=== PATIENT | male | born 1940 | race Caucasian/White ===

== ENCOUNTER 2021-05-22 23:38 | Inpatient (IN) | payer MEDICARE, BC ==
[~2021-05-22] VITALS: Ht 167.6 cm; Wt 74.8 kg
--- NOTE | 2021-05-22 23:40 | NUR ---
PT WAS BIBRA FROM HOME FOR C/O SOB X 2 HRS. PER EMS PT IS NORMALLY ON O2 AT 2LPM VIA NS ON BASE LINE AND WAS HOLDING O2 SAT OF 82% ON SCENE. PT ARRIVED ON O2 AT 15LPM VIA NRB MASK. REC'D ALBUTEROL AND 3 SPRAYS ON NITRO AUTOMATIC VULCANIZING OPERATOR. PT WAS PLACED IN BED 6ER, ON MONITOR, ON O2 AT 15LPM VIA NRB MASK. SATTING AT 96%. MADE AWARE. WILL CONT TO MONITOR ,
--- NOTE | 2021-05-22 23:56 | NUR ---
blood sent to lab
--- NOTE | 2021-05-23 00:01 | NUR ---
DR GARCIA AT BED SIDE
[2021-05-23 00:10] LABS: BASOPHILS # (AUTO) 0.1 K/uL (0.0-0.2); BASOPHILS % (AUTO) 0.7 % (0.0-2.0); EOSINOPHILS % (AUTO) 4.5 % (0.0-6.0); HEMATOCRIT 48 % (39-51); HEMOGLOBIN 16.1 g/dL (13.5-17.5); LYMPHOCYTES # (AUTO) 1.9 K/uL (0.8-4.8); LYMPHOCYTES % (AUTO) 16.3 % (20.0-44.0); MEAN CORPUSCULAR HGB CONC 34 g/dl (31.0-36.0); MEAN CORPUSCULAR VOLUME 98 fL (80-96); MONOCYTES % (AUTO) 8.4 % (2.0-12.0); NEUTROPHILS # (AUTO) 7.9 K/uL (1.8-8.9); NEUTROPHILS % (AUTO) 70.1 % (43.0-81.0); PLATELET COUNT (AUTO) 181 K/uL (150-450); RED BLOOD CELL COUNT(AUTO) 4.93 MIL/uL (4.5-6.0); WHITE BLOOD COUNT (AUTO) 11.4 K/uL (4.3-11.0)
[2021-05-23] MEDS ORDERED: FUROSEMIDE 40 MG/4 ML VIAL ONE (00:16)
[2021-05-23] MEDS ORDERED: NITROGLYCERIN 0.4 MG/TAB BOTTLE ONE (00:16)
[2021-05-23 00:22] LABS: CALCIUM, SERUM 8.6 mg/dL (8.5-10.1); CREATININE 0.8 mg/dL (0.6-1.3); POTASSIUM 4.8 mmol/L (3.5-5.1)
--- NOTE | 2021-05-23 00:23 | NUR ---
RT AT BED SIDE TO PLACE PT ON BIPAP
[2021-05-23] MEDS ORDERED: ALBUTEROL FS 2.5 MG/3 ML VIAL.NEB ONE (00:29)
[2021-05-23] MEDS ORDERED: FUROSEMIDE 40 MG/4 ML VIAL IV ONE ×2 (00:30→21:00)
[2021-05-23] MEDS ORDERED: NITROGLYCERIN 0.4 MG/TAB BOTTLE SL ONE (00:30)
[2021-05-23] MEDS ORDERED: ALBUTEROL FS 2.5 MG/3 ML VIAL.NEB NEB ONE (00:30)
--- NOTE | 2021-05-23 00:51 | NUR ---
BRETHING TX COMPLETED. PT IS PLACED ON O2 AT 10LPM VIA NRB MASK. WILL CONT TO MONITOR
--- NOTE | 2021-05-23 01:01 | NUR ---
PT WAS PROVIDED [facility]/ A PAPER AND PEN FOR HOME'S LIST
[2021-05-23] MEDS ORDERED: FURO-144 PO (01:28)
[2021-05-23] MEDS ORDERED: ASPI-1169 PO (01:28)
[2021-05-23] MEDS ORDERED: CHOL200074 PO (01:28)
[2021-05-23] MEDS ORDERED: MULT-1201 PO (01:28)
[2021-05-23] MEDS ORDERED: POTA20TA83 PO ×3 (01:28→12:43)
[2021-05-23] MEDS ORDERED: FLUT1BLS IH (01:28)
[2021-05-23] MEDS ORDERED: DOCU100C36 PO (01:28)
[2021-05-23 01:38] LABS: ALBUMIN 3.6 g/dL (3.4-5.0); BILIRUBIN,DIRECT 0.1 mg/dL (0.0-0.2); BILIRUBIN,TOTAL 0.5 mg/dL (0.2-1.0); TOTAL PROTEIN, SERUM 7.5 g/dL (6.4-8.2)
--- NOTE | 2021-05-23 02:06 | NUR ---
SITTING IN BED AWAKE AND RESPONSIVE, REMAINEDON O2 AT 10 LPM VIA NRB MASK .REPORTED FEELING OK. NO SOB. WILL CONT TO MONITOR ,
--- NOTE | 2021-05-23 02:51 | NUR ---
report given to nurse baltazar.
[2021-05-23] MEDS ORDERED: Z GUARD REMEDY 2 OZ OINT TP PRN (03:00)
[2021-05-23] MEDS ORDERED: BUMETANIDE INJ 6 MG in IV NS 0.9% 36 ML IV ONE (03:00)
[2021-05-23] MEDS ORDERED: ONDANSETRON HCL/PF 4 MG/2 ML VIAL IVP PRN (03:00)
[2021-05-23] MEDS ORDERED: ACETAMINOPHEN 325 MG TABLET PO PRN (03:00)
[2021-05-23 03:20] VITALS: BP 112/55
--- NOTE | 2021-05-23 03:20 | NUR ---
CLINICAL PROJECT ASSISTANT NOTES, RECEIVED 80 YEAR OLD FROM ER DEPARTMENT VIA STRETCHER ACCOMPANIED BY 2 NURSES, PATIENT A/O X 4 ABLE TO VERBALIZED NEEDS AND CONCERNS, ON NON REBREATHER MASK AT 10ML AT THIS TIME WITH O2 96%, 112/55, 72, 97.3, 20, ADMITTING [facility], WITH ADMITTING DX ACUTE HYPOXIC RESPIRATORY FAILURE, IV ACCESS IN RIGHT HAND 18G PATENT SONIA INTACT, ATTACHED TO TELE MONITOR WITH NSR AND HR IN 70S AT THIS TIME, SKIN INTACT, AFEBRILE, ALL SAFETY PRECAUTIONS PLACED, CALL LIGHT W/I REACH, WILL CONTINUE TO MONITOR CLOSELY.
--- NOTE | 2021-05-23 03:24 | NUR ---
urinated to 1000ml of clear yellow urine.
--- NOTE | 2021-05-23 03:28 | NUR ---
pt was transferred to rm [id number] under ACLS
--- NOTE | 2021-05-23 03:34 | NUR ---
home: [phone] [place]: [phone] cell fay, cell: [phone]
[2021-05-23] MEDS: ENOXAPARIN SODIUM 40 MG/0.4 ML DISP.SYRIN SQ SCH ×2 (03:44→21:20)
--- NOTE | 2021-05-23 04:15 | NUR ---
RN NOTES, PATIENT C/O OF INABILITY TO SLEEP AND STATED HE ALWAYS TAKES XANAX PO 0.5MG TO HELP TO SLEEP, PATIENT REQUESTING XANAX OR AMBIEN, PAGED SHARON Blackwood PARTS SALESMAN, PER TOUR LEADER SHE WILL PAGE SHARON Blackwood, AWAITING FOR CALL BACK.
[2021-05-23] MEDS ORDERED: BUMETANIDE INJ 0.25 MG/ML VIAL ONE ×2 (04:20→04:22)
--- NOTE | 2021-05-23 05:15 | NUR ---
RN NOTES, PATIENT UPSET ASKING FOR SOMETHING TO SLEEP, PAGED SHARON AGAIN, AWAITING FOR CALL BACK, PATIENT REFUSED BUMEX AND DEMAND TO STOP THE INFUSION, STATED THAT HE ALREADY TOOK LASIX AND ER DEPARTMENT, HE REFUSED BUMEX, EXPLAIN RISKS AND BENEFITS, STILL REFUSED, WILL INFORM SHARON.
--- NOTE | 2021-05-23 07:10 | NUR ---
RN NOTE RECEIVED PATIENT IN BED. A/O X4. ON SIMPLE MASK AT 2LPM. NO SOB NOTED. IN NO APPARENT DISTRESS. DENIES ANY PAIN OR DISCOMFORT AT THIS TIME. IV ACCESS ON R HAND #18G, INTACT AND PATENT. SAFETY MEASURES MAINTAINED. BED IN LOWEST POSITION, BRAKES LOCKED. SIDE RAILS UP X2. CALL LIGHT WITHIN REACH. WILL CONTINUE PLAN OF CARE.,
--- NOTE | 2021-05-23 07:31 | NUR ---
RN NOTES, NO RESPONSE FROM SHARON TILL NOW, ENDORSE TO TIAN/KARLI GARVEY FOR CONTINUATION OF CARE AND REPORT TO THAT PATIENT REFUSED BUMEX MEDICATION.
[2021-05-23] MEDS: PANTOPRAZOLE 40 MG TABLET.DR PO SCH (08:10)
[2021-05-23] MEDS: DOCUSATE SODIUM 100 MG CAPSULE PO SCH (08:10)
[2021-05-23] MEDS: FLUTICASONE/VILANTEROL 1 EACH BLST.W.DEV IH SCH (08:10)
[2021-05-23] MEDS: ASPIRIN 81 MG TAB.CHEW PO SCH (08:10)
[2021-05-23] MEDS ORDERED: POTASSIUM CHLORIDE 20 MEQ TAB.PRT.SR PO SCH ×2 (09:00→18:00)
[2021-05-23] MEDS ORDERED: FUROSEMIDE 40 MG TABLET PO SCH (09:00)
[2021-05-23] MEDS ORDERED: ALPR0.5T PO (13:43)
[2021-05-23 16:26] LABS: BILIRUBIN,URINE NEGATIVE (NEGATIVE); COLOR,URINE YELLOW (YELLOW); LEUKOCYTE ESTERASE ,URINE NEGATIVE (NEGATIVE); NITRITE, URINE NEGATIVE (NEGATIVE); PROTEIN,URINE NEGATIVE (NEGATIVE); UGLUCOSE NEGATIVE (NEGATIVE); UROBILINOGEN,URINE 0.2 EU/dL (0.2)
--- NOTE | 2021-05-23 18:50 | NUR ---
RN CLOSING NOTE PATIENT IN BED. A/O X4. ON 2LPM VIA NASAL CANNULA. NO SOB NOTED. NO S/S OF RESPIRATORY DISTRESS. DENIES ANY PAIN OR DISCOMFORT AT THIS TIME. IV ACCESS ON R HAND #18 G, INTACT AND PATENT. ALL DUE MEDS GIVEN ORDERED. ALL NEEDS HAVE BEEN MET AND ATTENDED. SAFETY MEASURES MAINTAINED. BED IN LOWEST POSITION, BRAKES LOCKED. SIDE RAILS UP X2. CALL LIGHT WITHIN REACH. WILL ENDORSE CONTINUITY OF CARE TO ONCOMING SHIFT.
[2021-05-23 20:00] VITALS: BP 97/65
--- NOTE | 2021-05-23 20:39 | NUR ---
DR. CHÁVEZ IN TO SEE PATIENT FOR CARDIOLOGY CONSULT. NEW ORDER TO GIVE IV LASIX X1 40MG NOW. ORDER PLACED.
[2021-05-23] MEDS ORDERED: ATORVASTATIN 40 MG TABLET PO SCH (22:00)
[2021-05-23] MEDS ORDERED: ALPRAZOLAM 0.5 MG TABLET PO PRN (22:00)
[2021-05-24] VITALS: BP 98/60
[2021-05-24 04:00] VITALS: BP 117/60
[2021-05-24 07:07] LABS: BASOPHILS # (AUTO) 0.1 K/uL (0.0-0.2); BASOPHILS % (AUTO) 1.2 % (0.0-2.0); EOSINOPHILS % (AUTO) 7.9 % (0.0-6.0); HEMATOCRIT 43 % (39-51); HEMOGLOBIN 14.4 g/dL (13.5-17.5); LYMPHOCYTES # (AUTO) 1.1 K/uL (0.8-4.8); LYMPHOCYTES % (AUTO) 17.1 % (20.0-44.0); MEAN CORPUSCULAR HGB CONC 34 g/dl (31.0-36.0); MEAN CORPUSCULAR VOLUME 97 fL (80-96); MONOCYTES # (AUTO) 0.8 K/uL (0.1-1.30); NEUTROPHILS % (AUTO) 61.8 % (43.0-81.0); PLATELET COUNT (AUTO) 138 K/uL (150-450); RED BLOOD CELL COUNT(AUTO) 4.38 MIL/uL (4.5-6.0); WHITE BLOOD COUNT (AUTO) 6.5 K/uL (4.3-11.0)
[2021-05-24 07:37] LABS: CALCIUM, SERUM 8.3 mg/dL (8.5-10.1); CREATININE 0.8 mg/dL (0.6-1.3); MAGNESIUM 1.9 mg/dL (1.8-2.4); PHOSPHORUS 4.4 mg/dL (2.5-4.9); POTASSIUM 4.4 mmol/L (3.5-5.1)
[2021-05-24] MEDS: PANTOPRAZOLE 40 MG TABLET.DR PO SCH (07:45)
--- NOTE | 2021-05-24 07:50 | NUR ---
RN OPENING NOTES RECEIVED PATIENT ON BED AWAKE ALERT AND ORIENTED X4. PATIENT IS ON 2 L OXYGEN VIA NASAL CANNULA SATURATING WELL. PATIENT IN NO APPARENT RESPIRATORY DISTRESS NOTED. NO COMPLAINED OF PAIN NOTED AT THIS TIME. WILL CONTINUE TO MONITOR.
[2021-05-24 07:56] LABS: THYROID STIMULATING HORMONE 1.868 uIU/mL (0.358-3.74)
[2021-05-24 08:00] VITALS: BP 98/53
[2021-05-24] MEDS ORDERED: METOPROLOL SUCCINATE 25 MG TAB.SR.24H PO SCH (08:30)
[2021-05-24] MEDS ORDERED: POTASSIUM CHLORIDE 20 MEQ TAB.PRT.SR PO SCH (09:00)
[2021-05-24] MEDS: FUROSEMIDE 40 MG TABLET PO SCH ×2 (09:18→09:26)
[2021-05-24] MEDS: DOCUSATE SODIUM 100 MG CAPSULE PO SCH (09:18)
[2021-05-24] MEDS: ASPIRIN 81 MG TAB.CHEW PO SCH (09:18)
[2021-05-24] MEDS: FLUTICASONE/VILANTEROL 1 EACH BLST.W.DEV IH SCH (09:20)
[2021-05-24 12:00] VITALS: BP 111/64
[2021-05-24] MEDS ORDERED: METO25TA6 PO (12:47)
[2021-05-24] MEDS ORDERED: FURO40TA5 PO (12:47)
--- NOTE | 2021-05-24 14:37 | NUR ---
RN NOTES PATIENT WAS UPSET THAT HE DIDNT GET PT EVAL CHARGE NURSE SOON WAS AWARE, ORDER PT EVAL.
--- NOTE | 2021-05-24 18:36 | NUR ---
RN NOTES PATIENT IS ALERT AND ORIENTED X4. PATIENT IS ON ROOM AIR SATURATION 93%. PATIENT IN NO APPARENT RESPIRATORY DISTRESS NOTED. NO COMPLAINED OF PAIN AT THIS TIME. SEEN AND EXAMINED BY MD WITH ORDERS MADE AND CARRIED OUT. ALL DUE MEDICATIONS WAS GIVEN. DISCHARGED INSTRUCTIONS WAS GIVEN AND PATIENT VERBALIZED UNDERSTANDING. PATIENT LEFT THE HOSPITAL IN MEDICALLY STABLE CONDITION.GARBAGE COLLECTOR BY AND SON VIA PRIVATE CAR.
== END 2021-05-24 15:26 | disposition home or self-care (01) | DRG 280 ==
LOC: ER 23:39 → TELE1 05-23 02:11
PROVIDERS: ADMIT Registered Nurse; ATTEND Registered Nurse
DX: I50.23 Acute on chronic systolic (congestive) heart failure (principal); I21.A1 Myocardial infarction type 2; J96.21 Acute and chronic respiratory failure with hypoxia; J45.909 Unspecified asthma, uncomplicated; I25.10 Atherosclerotic heart disease of native coronary artery without angina pectoris; Z87.891 Personal history of nicotine dependence; Z79.82 Long term (current) use of aspirin; Z20.822 Contact with and (suspected) exposure to COVID-19; D72.829 Elevated white blood cell count, unspecified; G47.33 Obstructive sleep apnea (adult) (pediatric); Z95.0 Presence of cardiac pacemaker; Z95.2 Presence of prosthetic heart valve; Z79.899 Other long term (current) drug therapy; I35.0 Nonrheumatic aortic (valve) stenosis; F10.20 Alcohol dependence, uncomplicated; Y90.9 Presence of alcohol in blood, level not specified; Z79.51 Long term (current) use of inhaled steroids
CPT/HCPCS: 36415; 71045-TC; 80048-TC; 80061-TC; 80076-TC; 83540-TC; 83735-TC; 83880; 84100-TC; 84443-TC; 84484-TC; 85025-TC; 85730-TC; 87081-TC; 93307-TC; C9803; G0378; J1650; J1940; J3490; J7030; J7050